=== PATIENT | female | born 1975 | race Caucasian/White ===

== ENCOUNTER → 2017-03-09 | Outpatient (CLI) | payer BC ==
--- NOTE | 2017-03-09 11:37 | MM ---
Reason for exam: follow-up at short interval from prior study. Last mammogram was performed 6 months ago. History: Patient is nulliparous. Benign US biopsy breast VAD RT of the right breast, September 07, 2016. Benign US biopsy breast VAD RT of the right breast, February 14, 2016. Benign ultrasound-guided core biopsy of the right breast, 2013. Physical Findings: Nurse did not find any significant physical abnormalities on exam. MG Diagnostic Mammo w CAD DIDIER Bilateral CC and MLO view(s) were taken. Prior study comparison: September 07, 2016, right breast MG diagnostic mammo RT wo CAD. February 14, 2016, right breast MG diagnostic mammo RT wo CAD. The breast tissue is heterogeneously dense. This may lower the sensitivity of mammography. Previous mammotome biopsy in the right breast x 3. No significant new findings when compared with previous films. These results were verbally communicated with the patient and result sheet given to the patient on 03/09/17. ASSESSMENT: Benign, BI-RAD 2 RECOMMENDATION: Routine screening mammogram of both breasts in 1 year.
--- NOTE | 2017-03-09 11:39 | USB ---
Reason for exam: follow-up at short interval from prior study. History: Patient is nulliparous. Benign US biopsy breast VAD RT of the right breast, September 07, 2016. Benign US biopsy breast VAD RT of the right breast, February 14, 2016. Benign ultrasound-guided core biopsy of the right breast, 2013. US Breast RT Right breast ultrasound includes all four quadrants, the retroareolar region and axilla. Finding demonstrates a 1.3 x 0.6 x 1.2cm solid, hypoechoic lesion at 2 o'clock, previously biopsied and a 0.8 x 1.1cm solid, hypoechoic lesion at the posterior nipple, previously biopsied. These results were verbally communicated with the patient and result sheet given to the patient on 03/09/17. ASSESSMENT: Benign, BI-RAD 2 RECOMMENDATION: Routine screening mammogram of both breasts in 1 year.
== END | disposition home or self-care (01) ==
LOC: RADMAMWWP 08:18
PROVIDERS: ATTEND Surgery
DX: R92.8 Other abnormal and inconclusive findings on diagnostic imaging of breast (principal)
CPT/HCPCS: 76641; G0204

== ENCOUNTER → 2018-04-30 | Outpatient (CLI) | payer BC ==
--- NOTE | 2018-05-01 10:57 | MM ---
Reason for exam: screening (asymptomatic). Last mammogram was performed 1 year and 2 months ago. History: Patient is nulliparous. Benign US biopsy breast VAD RT of the right breast, September 07, 2016. Benign US biopsy breast VAD RT of the right breast, February 14, 2016. Benign ultrasound-guided core biopsy of the right breast, 2013. Physical Findings: A clinical breast exam by your physician is recommended on an annual basis and results should be correlated with mammographic findings. MG Screening Mammo w CAD Bilateral CC and MLO view(s) were taken. Prior study comparison: March 09, 2017, bilateral MG diagnostic mammo w CAD DIDIER. September 07, 2016, right breast MG diagnostic mammo RT wo CAD. The breast tissue is heterogeneously dense. This may lower the sensitivity of mammography. Focal asymmetry 6cm from nipple lower central left breast. ASSESSMENT: Incomplete: need additional imaging evaluation, BI-RAD 0 RECOMMENDATION: Special view mammogram of the left breast. If lesion persists on supplemental views, image directed ultrasound is recommended. [facility] will attempt to contact patient to return for supplemental views and ultrasound if indicated.
== END | disposition home or self-care (01) ==
LOC: RADMAMWWP 09:34
PROVIDERS: ATTEND Family Medicine
DX: Z12.31 Encounter for screening mammogram for malignant neoplasm of breast (principal)
CPT/HCPCS: 77067

== ENCOUNTER → 2019-06-11 | Outpatient (CLI) | payer BC ==
--- NOTE | 2019-06-12 11:57 | MM ---
Reason for exam: screening (asymptomatic). Last mammogram was performed 1 year and 1 month ago. History: Patient is nulliparous. Benign US biopsy breast VAD RT of the right breast, September 07, 2016. Benign US biopsy breast VAD RT of the right breast, February 14, 2016. Benign ultrasound-guided core biopsy of the right breast, 2013. Physical Findings: A clinical breast exam by your physician is recommended on an annual basis and results should be correlated with mammographic findings. MG Screening Mammo w CAD Bilateral CC and MLO view(s) were taken. Prior study comparison: April 30, 2018, bilateral MG screening mammo w CAD. March 09, 2017, bilateral MG diagnostic mammo w CAD DIDIER. The breast tissue is heterogeneously dense. This may lower the sensitivity of mammography. Previous mammotome biopsy in the right breast. There is chronic nodularity in the right breast. No significant changes when compared with prior studies. ASSESSMENT: Benign, BI-RAD 2 RECOMMENDATION: Routine screening mammogram of both breasts in 1 year.
== END | disposition home or self-care (01) ==
LOC: RADMAMWWP 08:32
PROVIDERS: ATTEND Family Medicine
DX: Z12.31 Encounter for screening mammogram for malignant neoplasm of breast (principal)
CPT/HCPCS: 77067

== ENCOUNTER → 2020-10-07 | Outpatient (CLI) | payer BC ==
--- NOTE | 2020-10-08 08:46 | MM ---
Reason for exam: screening (asymptomatic). Last mammogram was performed 1 year and 4 months ago. History: Patient is nulliparous. Benign US biopsy breast VAD RT of the right breast, September 07, 2016. Benign US biopsy breast VAD RT of the right breast, February 14, 2016. Benign ultrasound-guided core biopsy of the right breast, 2013. Physical Findings: A clinical breast exam by your physician is recommended on an annual basis and results should be correlated with mammographic findings. MG Screening Mammo w CAD Bilateral CC and MLO view(s) were taken. Prior study comparison: June 11, 2019, bilateral MG screening mammo w CAD. April 30, 2018, bilateral MG screening mammo w CAD. The breast tissue is extremely dense which could obscure a lesion on mammography. Finding: There are typically benign round, grouped/clustered calcifications in the right breast. Previous mammotome biopsy in the right breast x 3. There is no discrete abnormality. ASSESSMENT: Benign, BI-RAD 2 RECOMMENDATION: Routine screening mammogram of both breasts in 1 year.
== END | disposition home or self-care (01) ==
LOC: RADMAMWWP 08:10
PROVIDERS: ATTEND Family Medicine
DX: Z12.31 Encounter for screening mammogram for malignant neoplasm of breast (principal)
CPT/HCPCS: 77067

== ENCOUNTER → 2020-12-29 | Outpatient (CLI) | payer BC ==
--- NOTE | 2020-12-29 11:41 | MR ---
EXAMINATION TYPE: MR brain wo/w con DATE OF EXAM: 12/29/2020 COMPARISON: HISTORY: Hx of cancer, left hemispheric neoplasm, rt hemiparesis TECHNIQUE: Multiplanar, multisequence images of the brain and brainstem is performed without and with IV contras t, utilizing 5.5 mL intravenous Gadavist . FINDINGS: Fast brain protocol utilized due to patient's claustrophobia Diffusion weighted images demo nstrate no evidence of a recent infarct or other diffusion abnormality. There is no extra-axial flui d collection. Some confluent hyperintensity and inversion recovery T2-weighted sequences in the ruben ventricular white matter is noted, punctate focus of increased signal noted in the right frontal lobe The ventricular system and cisternal spaces are normal in size and appearance. The brain volume is age appropriate. Midline structures demonstrate normal morphology. The craniocervical junction appears within normal limits. Post contrast images demonstrate no abnormal enhancement. The dural venous sinuses appear pa tent. The visualized sinuses are remarkable for minimal inflammatory change in the left maxillary sin us and the globes are intact. IMPRESSION: Nonspecific white matter demyelination.
== END | disposition home or self-care (01) ==
LOC: RADMRIMAIN 09:51
PROVIDERS: ATTEND Psychiatry & Neurology Neurology
DX: G37.9 Demyelinating disease of central nervous system, unspecified (principal); C71.9 Malignant neoplasm of brain, unspecified
CPT/HCPCS: 70553; A9585

== ENCOUNTER → 2021-01-20 | Outpatient (CLI) | payer BC ==
--- NOTE | 2021-01-20 09:17 | MR ---
MRI CERVICAL SPINE: CLINICAL HISTORY: Myelopathy. Neck pain and stiffness. Loss of right-sided feeling. Right-sided spast icity. Possible Brown-Sequard lesion. TECHNIQUE: Multiplanar, multisequence imaging of the cervical spine is performed without IV contrast . COMPARISON: None. FINDINGS: There is dextroconvex scoliotic curvature on coronal images centered near cervicothoracic j unction. Sagittal images of the cervical spine show the craniocervical junction to appear within norm al limits. The cervical and upper thoracic spinal cord is normal in caliber and signal. Sagittal ana m ges show loss of normal cervical curvature with slight grade 1 retrolisthesis C4 on C5, C5 on C6 and to lesser degree C6 on C7. The vertebral body and intravertebral disk heights are normal. The bone marrow signal intensity is within normal limits. Axial images show C2-C3 and C3-C4 levels to appear within normal limits. Axial images at C4-C5 levels from broad-based lobulated posterior disc protrusion effacing anterior t hecal sac, patent bilateral neural foramina. Axial images at C5-C6 level show broad-based central disc protrusion mildly facing anterior thecal sa c, patent bilateral neural foramina. Axial images at C6-C7 level shows broad-based central disc protrusion mildly effacing anterior thecal sac, mild left-sided neural foraminal narrowing is present. Axial images at C7-T1 level appear within normal limits. There is 1.3 cm T2 hyperintense left thyroid nodule axial image 10. There is posterior disc herniatio n T2-T3 level effacing the anterior thecal sac sagittal image 8. IMPRESSION: Spinal cord shows no areas of suspicious abnormal signal. Loss of normal cervical curvatu re with multilevel spondylolisthesis and degenerative changes mid to lower cervical spine as detailed above. Nonemergent thyroid ultrasound follow-up to assess thyroid nodules if this is not known ashley elliott
== END ==
LOC: RADMRIMAIN 08:06
PROVIDERS: ATTEND Psychiatry & Neurology Neurology
DX: M47.12 Other spondylosis with myelopathy, cervical region (principal); M43.12 Spondylolisthesis, cervical region; M99.71 Connective tissue and disc stenosis of intervertebral foramina of cervical region; M50.921 Unspecified cervical disc disorder at C4-C5 level; E04.1 Nontoxic single thyroid nodule
CPT/HCPCS: 72141

== ENCOUNTER 2021-02-08 08:01 | Day surgery (SDC) | payer BC ==
[2021-02-08 08:29] VITALS: TEMP 98
[2021-02-08] MEDS ORDERED: LACTATED RINGERS 1,000 ML IV ONE (08:29)
--- NOTE | 2021-02-08 09:17 | P.PCN ---
Date of Procedure: 02/08/21 Description of Procedure: Preoperative diagnosis: spastic hemiplegia Post operative diagnoses: spastic hemiplegia Anesthesia local infiltration with lidocaine 1% 2 mL. Condition: stable Complication: none. Description of the procedure procedure risk and benefits discussed with the patient and family, consent signed. Patient was taken to the procedure area placed in left lateral position. Local infiltration of the skin and subcutaneous tissue with lidocaine 1%. A 20-gauge Quincke-type needle advanced slowly at L4- 5 interlaminar space. CSF was collected. A total of 8 ML of clear cerebrospinal fluid collected in 4 tubes. Then, the needle was removed and a Band-Aid applied and patient tolerated the procedure well without any complications.
[2021-02-08 09:27] VITALS: RESP 16
[2021-02-08 09:39] VITALS: BP 115/72; PULSE 72
[2021-02-08 13:16] LABS: Appearance,CSF Clear; CSF Tube Number 3; CSF Tube Volume 1.8; Nucleated Cells, CSF 0 u/L (0-5); Red Blood Cell,CSF 1 u/L (0-10)
[2021-02-08 14:28] LABS: Glucose,CSF 50 mg/dL (40-70); Total Protein,CSF 41 mg/dL (12-60)
[2021-02-09 15:14] LABS: IgG - CSF 1.5 mg/dL (0.0 - 3.4); IgG/Albumin Index (CSF) 0.51 (0.00 - 0.77); Immunoglobulin G 942 mg/dL (700 - 1600)
== END 2021-02-08 10:04 | disposition home or self-care (01) ==
LOC: ORPAIN 08:01
PROVIDERS: ATTEND Anesthesiology
DX: G81.11 Spastic hemiplegia affecting right dominant side (principal); R83.6 Abnormal cytological findings in cerebrospinal fluid; M54.41 Lumbago with sciatica, right side; R90.82 White matter disease, unspecified; E89.0 Postprocedural hypothyroidism; Z88.0 Allergy status to penicillin; Z86.2 Personal history of diseases of the blood and blood-forming organs and certain disorders involving the immune mechanism; Z87.440 Personal history of urinary (tract) infections; Z86.19 Personal history of other infectious and parasitic diseases; Z83.3 Family history of diabetes mellitus
CPT/HCPCS: 62270; 82040; 82042; 82784; 82945; 83916; 84157; 86592; 87070; 87205; 88108; 89050

== ENCOUNTER 2021-02-11 13:04 | Day surgery (SDC) | payer BC ==
[2021-02-11 13:31] VITALS: RESP 16; TEMP 98.8
[2021-02-11] MEDS ORDERED: LIDOCAINE 1% (10MG/ML) FOR IV START INTRADERMA ONE (13:43)
[2021-02-11] MEDS ORDERED: LACTATED RINGERS 1,000 ML IV ONE ×2 (13:43)
[2021-02-11] MEDS ORDERED: fentaNYL (PF) 50 MCG/ML 2 ML AMP ONE (14:39)
[2021-02-11] MEDS ORDERED: MIDAZOLAM 2 MG/2 ML VIAL ONE (14:39)
--- NOTE | 2021-02-11 14:53 | P.PCN ---
Date of Procedure: 02/11/21 Procedure(s) Performed: Procedure= lumbar epidural blood patch. Preoperative diagnosis= postdural puncture headache. Postoperative diagnoses= post dural puncture headache. Indication for the procedure= patient developed headache after the diagnostic lumbar puncture,the headache persists in spite of conservative treatment, there is no focal neurological deficit, no fever, no neck stiffness, headache worse with sitting and standing position, and improved with lying supine, for this reason patient is a good candidate for epidural blood patch. The risks and benefits and alternative of the procedure discussed with the patient she agreed with the preceding anesthesia= monitored anesthesia care as per anesthesia department. Complications= none. Description of the procedure= patient identified risks and benefits of the procedure explained to the patient and patient agreed with proceeding, vital signs monitored during the procedure and IV sedation given to decrease anxiety, Back lumbar area prepped with chlorhexidine 3 times, then drape applied the local infiltration of the skin and subcutaneous tissue with lidocaine 1% 3 mL at L5-S1 interlaminar space then 18-gauge Tuohy needle advanced slowly at L5-S1 interlaminar space, There was positive loss of resistance to normal saline, no heme no paresthesia no cerebrospinal fluid, then after that he ML of the blood taken from the patient under strict sterile technique, and after the left antecubital area prepped with a chlorhexidine 3 times using 22-gauge Angiocath, and under sterile technique the 20 ML of the block taken from the patient injected in the epidural space after negative aspiration for heme or CSF and there was no paresthesia t hen the needle removed intact the skin cleaned and the , bandage applied and patient discharged home in stable condition after discharge criteria met, and patient will follow up with the clinic when necessary
[2021-02-11] MEDS ORDERED: IV FLUID CONTINUATION 1,000 ML IV ONE (14:55)
[2021-02-11 15:29] VITALS: BP 120/77; PULSE 75
== END 2021-02-11 15:30 | disposition home or self-care (01) ==
LOC: ORPAIN 13:04
PROVIDERS: ATTEND Anesthesiology
DX: G97.1 Other reaction to spinal and lumbar puncture (principal); E03.9 Hypothyroidism, unspecified; Z79.890 Hormone replacement therapy; Z88.0 Allergy status to penicillin
CPT/HCPCS: 62273; J2250; J3010

== ENCOUNTER → 2021-02-15 | Outpatient (CLI) | payer BC ==
--- NOTE | 2021-02-15 15:14 | MR ---
EXAMINATION TYPE: MR thoracic spine wo/w con DATE OF EXAM: 02/15/2021 COMPARISON: NONE HISTORY: 45-year-old female myelopathy, Possible MS, right side low back pain down right leg. Technique: Multiplanar, multisequence images of the thoracic spine were obtained before and after adm inistration of 5.5 mL intravenous Gadavist gadolinium contrast. Additional sagittal PD sequence per MS protocol. FINDINGS: Vertebral body heights are preserved and alignment is maintained. No suspicious bone marrow replacement. Small fatty matrix hemangiomas within the T4 and T7 vertebral bodies. Mild multilevel degenerative disc disease with variable early intervertebral disc desiccation and sma ll posterior disc protrusions at various levels. The largest posterior disc protrusion is located at T6-T7 and T7-T8. These indent the ventral cord but do not contribute to any significant spinal canal stenosis or cord compression. Mild facet arthropathy lower thoracic spine. There may be mild narrowing of the left T10-T11 neurofor amen. Normal course, caliber, and signal intensity of the cervical spinal cord. No abnormal enhancement within the spinal canal. Suspect underlying hepatic cysts or hemangiomas measuring up to at least 2.4 cm. This can be confirme d with a liver ultrasound. IMPRESSION: 1. Mild multilevel degenerative disc disease. Early intervertebral disc desiccation and small posteri or disc protrusions are present. No large focal disc herniation or significant spinal canal stenosis. 2. No significant neuroforaminal stenosis. 3. No myelopathic cord signal change. 4. Hepatic lesions measuring up to 2.4 cm, probable cysts or hemangiomas. This can be confirmed with liver ultrasound.
--- NOTE | 2021-02-15 15:21 | MR ---
EXAMINATION TYPE: MR lumbar spine wo con DATE OF EXAM: 02/15/2021 COMPARISON: None HISTORY: 45-year-old female Possible MS, right side low back pain down right leg. TECHNIQUE: Multiplanar, multisequence images of the lumbar spine were acquired. FINDINGS: Vertebral body heights are preserved and alignment is maintained. Mild heterogeneous marrow signal suggesting red marrow hyperplasia. Conus medullaris is normal seen to the L1-L2 level. No prevertebral or paravertebral soft tissue abnormality. There are very mild disc bulges at multiple levels. Facet arthropathy mid to lower lumbar spine. No large focal disc herniation or significant spinal canal stenosis Bulging discs contribute to minimal inferior neural foraminal narrowing at multiple levels. No signif icant neuroforaminal stenosis. Sacral Tarlov cysts measuring up to 1.8 cm on the left and 1.4 cm on the right. IMPRESSION: 1. Very mild bulging disks at multiple levels. No large focal disc herniation or significant spinal c anal stenosis. 2. Mild facet arthropathy lower lumbar spine. No significant neuroforaminal stenosis. 3. Prominent sacral Tarlov cysts measuring up to 1.8 cm.
== END | disposition home or self-care (01) ==
LOC: RADMRIMAIN 11:30
PROVIDERS: ATTEND Psychiatry & Neurology Neurology
DX: M51.04 Intervertebral disc disorders with myelopathy, thoracic region (principal); K76.9 Liver disease, unspecified; M47.816 Spondylosis without myelopathy or radiculopathy, lumbar region; G96.191 Perineural cyst
CPT/HCPCS: 72148; 72157; A9585

== ENCOUNTER 2021-03-03 12:18 | Day surgery (SDC) | payer BC ==
[2021-03-03 13:20] VITALS: RESP 16; TEMP 98.2
[2021-03-03 13:52] VITALS: BP 104/67; PULSE 69
--- NOTE | 2021-03-03 15:43 | US ---
EXAMINATION TYPE: US FNA thyroid first lesion DATE OF EXAM: 03/03/2021 COMPARISON: NONE HISTORY: Thyroid nodule on the left, history right hemithyroidectomy. Maximal barrier technique was utilized. After informed consent, skin overlying the lesion was locali zed with ultrasound and the overlying skin prepped and draped. Ultrasound was utilized using sterile technique. Lidocaine was used for local anesthesia. Five passes with a 25-gauge needle were made int o the nodule and aspirated specimen was submitted to cytology. Following the procedure hemostasis ac hieved. No immediate complication. The patient discharged in stable condition. IMPRESSION: STATUS POST ULTRASOUND GUIDED FINE NEEDLE ASPIRATION OF THYROID NODULE, PATHOLOGY IS PEND ING. THIS PROCEDURE WAS PERFORMED BY THE UNDERSIGNED.
== END 2021-03-03 13:49 | disposition home or self-care (01) ==
LOC: RADPROMAIN 12:18
PROVIDERS: ATTEND Family Medicine
DX: E04.1 Nontoxic single thyroid nodule (principal)
CPT/HCPCS: 10005; 88173; 88305

== ENCOUNTER → 2022-04-10 | Outpatient (CLI) | payer BC ==
--- NOTE | 2022-04-11 05:24 | MR ---
EXAMINATION TYPE: MR brain wo/w con DATE OF EXAM: 04/10/2022 COMPARISON: 12/29/2020 HISTORY: Quadraparesis CONTRAST: Standard multiplanar, multisequence MRI departmental protocol images were obtained without contrast a nd with 6 mL intravenous Gadavist gadolinium contrast. The diffusion images show no sign of an acute infarct. Ventricles have fairly normal size. There is n o mass effect or midline shift. Corpus callosum is intact. There are a few scattered areas of mild wh ite matter increased signal around the lateral ventricles. Total number of foci is less than 10 and t he largest is in the right frontal lobe and measures 4 mm. There is a background of some diffuse whit e matter increased signal. The brainstem is intact. The sella turcica is intact. No evidence of orbit al mass. No evidence of posterior fossa mass. Cerebellum is intact. The contrast images show no pathologic enhancement. There is normal enhancement of the venous sinuses . IMPRESSION: There are scattered white matter high signal foci not significantly different than old exam. There is diffuse background increased signal in the white matter around the lateral ventricles. This could re late to some diffuse demyelinating process. No change.
== END | disposition home or self-care (01) ==
LOC: RADMRIMAIN 08:02
PROVIDERS: ATTEND Psychiatry & Neurology Neurology
DX: G82.50 Quadriplegia, unspecified (principal)
CPT/HCPCS: 70553; A9585

== ENCOUNTER → 2022-06-14 | Outpatient (CLI) | payer BC ==
--- NOTE | 2022-06-14 16:34 | FL ---
INDICATION: Patient age:Female; 47 years old; Reason for study: R13.11 DYSPHAGIA ORAL PHASE COMPARISON: None TECHNIQUE: Utilizing real-time video recording fluoroscopy, multiple images were obtained after admin istration of various consistencies of barium contrast. A speech pathologist was present throughout the exam. Fluoroscopic time: 1.58 min FINDINGS: Consistencies administered: thin, apple sauce, chopped, and cracker barium. During the oral phase th ere is normal formation of food bolus with delayed initiation of swallow with all consistencies. Premature spill: All consistencies. Laryngeal penetration: None identified. Piriform Retention:None identified Vallecular retention: All consistencies. Nasopharyngeal reflux: None identified. Tracheal aspiration: None identified. IMPRESSION: 1. No evidence of tracheal aspiration. 2. Delayed initiation of swallow all consistencies with premature spill. 3. Vallecular retention with all consistencies. Please see dedicated speech pathology report for additional information.
== END | disposition home or self-care (01) ==
LOC: RADFLMAIN 11:07
PROVIDERS: ATTEND Psychiatry & Neurology Neurology
DX: R13.11 Dysphagia, oral phase (principal)
CPT/HCPCS: 74230

== ENCOUNTER → 2022-07-28 | Outpatient (CLI) | payer BC | END | disposition home or self-care (01) | LOC: LABWHC1 09:30 | PROVIDERS: ATTEND Psychiatry & Neurology Neurology | DX: R26.9 Unspecified abnormalities of gait and mobility (principal) | CPT/HCPCS: 36415 ==

== ENCOUNTER → 2022-07-31 | Outpatient (CLI) | payer BC ==
--- NOTE | 2022-07-31 22:00 | MR ---
EXAMINATION TYPE: MR brain wo/w con DATE OF EXAM: 07/31/2022 COMPARISON: Prior MRI brain April 10, 2022 and older study 2020 HISTORY: Unable to walk, evaluate for demyelinating disease. TECHNIQUE: Multiplanar, multisequence images of the brain and brainstem is performed without and with IV contras t, utilizing 6 mL intravenous Gadavist gadolinium contrast is administered intravenously. Demyelinat ing disease protocol with additional Sagittal Flair sequence performed. FINDINGS: T2 Lesions Present : Yes Approximate Number of Lesions: Approximate 5-7 Locations Identified : Scattered Size of Reference Lesion(s): 1. Approximate 4 x 4 by 4 mm lesion right frontal lobe axial image 19 and sagittal image 205 Enhancing Lesion(s) Present: No T1 Hypointense Lesion(s) Present: No Change from Prior: Likely stable, change in technique noted. Diffusion weighted images demonstrate no evidence of a recent infarct or other diffusion abnormality. There is no worrisome extra-axial fluid collection. The ventricular system and cisternal spaces ar e normal in size and appearance. The brain volume is age appropriate. Midline structures demonstrate normal morphology. The craniocervical junction appears within normal limits. Post contrast images demonstrate no abnormal enhancement. The dural venous sinuses appear pa tent. The visualized sinuses are clear and the globes are intact. IMPRESSION: Minimal nonspecific white matter changes redemonstrated. No new or enhancing lesions seen . No significant change from prior.
== END | disposition home or self-care (01) ==
LOC: RADMRIMAIN 15:06
PROVIDERS: ATTEND Psychiatry & Neurology Neurology
DX: G31.9 Degenerative disease of nervous system, unspecified (principal)
CPT/HCPCS: 70553; A9585